=== PATIENT | female | born 1970 | race Caucasian/White ===

== ENCOUNTER 2025-02-12 07:29 | Emergency (ER) | payer MEDICAID, OTHER ==
[~2025-02-12] VITALS: Ht 160 cm; Wt 51.7 kg
[2025-02-12] MEDS ORDERED: ATOR10TA PO (07:39)
[2025-02-12] MEDS ORDERED: MECLIZINE HCL 25 MG TABLET ONE (07:44)
[2025-02-12 07:52] LABS: PLATELET COUNT (AUTO) 225 K/uL (179-408); RED BLOOD CELL COUNT(AUTO) 4.20 MIL/uL (3.63-4.92); RED CELL DISTRIBUTION WIDTH 14.1 % (12.3-17.7); WHITE BLOOD COUNT (AUTO) 6.4 K/uL (3.8-11.8)
[2025-02-12] MEDS: MECLIZINE HCL 25 MG TABLET PO ONE (07:52)
[2025-02-12 08:06] LABS: ASPARTATE AMINOTRANSFERASE 21.0 U/L (15-37); CREATININE 0.7 mg/dL (0.6-1.3); SODIUM SERUM 137.0 mmol/L (136-145); TOTAL PROTEIN, SERUM 6.4 g/dL (6.4-8.2); UREA NITROGEN, BLOOD 30.0 mg/dL (7-18)
[2025-02-12] MEDS: IV NS 1000 ML 1,000 ML IV ONE (08:34)
[2025-02-12] MEDS ORDERED: ONDANSETRON 4 MG/2 ML VIAL ONE (08:34)
[2025-02-12] MEDS: ONDANSETRON 4 MG/2 ML VIAL IV ONE (08:36)
[2025-02-12 09:11] LABS: *BILIRUBIN,URIN NEGATIVE (NEGATIVE); *CLARITY,URINE CLEAR (CLEAR); *COLOR,URINE YELLOW (YELLOW); *KETONES,URINE NEGATIVE (NEGATIVE); *PROTEIN,URINE NEGATIVE (NEGATIVE); *UROBILINOGEN,URINE 0.2 E.U./dl (NORMAL); LEUKOCYTE ESTERASE ,URINE NEGATIVE (NEGATIVE); NITRITE, URINE NEGATIVE (NEGATIVE); UGLUCOSE NEGATIVE (NEGATIVE)
[2025-02-12 09:20] LABS: *BLOOD, URINE TRACE (NEGATIVE)
[2025-02-12 09:22] LABS: SQUAMOUS EPITHELIAL CELL,UR NONE SEEN /HPF (NONE SEEN)
[2025-02-12] MEDS ORDERED: ONDA4TAB5 PO (09:50)
[2025-02-12] MEDS ORDERED: MECL-159 PO (09:50)
[2025-02-12 10:32] VITALS: BP 100/64; TEMP 97.9; O2SAT 99
== END 2025-02-12 10:10 | disposition home or self-care (01) ==
LOC: ER 07:29
DX: R42 Dizziness and giddiness (principal); R11.0 Nausea; E78.5 Hyperlipidemia, unspecified; E86.0 Dehydration
CPT/HCPCS: 99284; 96374; 96361; 80076; 80048; 81001; 83735; 85025; 36415; 93005; J2405; J7040; A4606; A4663; J8597